=== PATIENT | female | born 1975 | race Caucasian/White ===

== ENCOUNTER → 2020-02-05 11:48 | Outpatient (CLI) | payer OTHER, SELFPAY ==
--- NOTE | 2020-02-05 11:58 | DI.CT.S_ITS ---
PROCEDURE: CT ABDOMEN PELVIS WO CON INDICATIONS: Calculus of ureter TECHNIQUE: Noncontrast 5 mm thick sections acquired from the diaphragms to the symphysis. 5 mm thick coronal and sagittal reformats were then performed. For radiation dose reduction, the following was used: automated exposure control, adjustment of mA and/or kV according to patient size. COMPARISON: (Prior renal ultrasounds are not available from the archive at the time of this dictation.) FINDINGS: Image quality: Excellent. Lung bases: Lung bases are clear. Heart size is normal. Urinary system: There is an obstructing stone seen within the distal left ureter measuring 8 mm, as on series 4 image 42 and on series 2 image 83. There is associated left-sided hydroureter and hydronephrosis. No additional nonobstructing stones are seen on the left side. On the right, several nonobstructing stones are seen, including an irregular 9 mm stone, as on series 2 image 34. No right-sided hydronephrosis is seen. The kidneys demonstrate normal size. Bladder wall thickness is normal; no calcified bladder stones. Other solid organs: Liver is normal in size. Diffuse fatty liver infiltration is noted. Gallbladder wall does not appear thickened. Pancreas is normal in contours. Spleen is normal in size. No adrenal nodules. Peritoneum and bowel: Generalized wall thickening can be seen involving the distal descending colon, beginning at the level of the splenic rupture and continuing through the sigmoid colon. No significant surrounding inflammatory changes are seen. No dilated loops of small bowel are seen. No free fluid or air. Incidental note is made of a normal-appearing appendix. Nodes and vessels: No retroperitoneal or mesenteric adenopathy by size criteria. Aorta and inferior vena cava are normal in caliber. Abdominal wall: A mild periumbilical hernia is seen, containing fat. Pelvis: No free pelvic fluid. No inguinal hernias or adenopathy. Bones: No suspicious bony lesions. No vertebral body compression fractures. Minimal levoconvex lumbar scoliotic curvature is seen. IMPRESSION: 8mm obstructing stone seen within the distal left ureter, with associated left-sided hydroureter and hydronephrosis. Nonobstructing right-sided kidney stones are seen. Generalized wall thickening is seen involving the distal colon. Differential diagnosis includes artifact from nondistention. However, please correlate with potential infectious and inflammatory causes a mild colitis. Incidental note is made of: Fatty liver infiltration Mild fat containing periumbilical hernia Normal appendix Dictated by: Demarcus Gonzalez M.D. on 02/05/2020 at 11:21 Approved by: Demarcus Gonzalez M.D. on 02/05/2020 at 11:26
== END ==
PROVIDERS: PCP Family Medicine; Referring Provider Physician Assistant; Visit Provider Physician Assistant
DX: N13.2 Hydronephrosis with renal and ureteral calculous obstruction (principal); K76.0 Fatty (change of) liver, not elsewhere classified; K42.9 Umbilical hernia without obstruction or gangrene
CPT/HCPCS: 74176

== ENCOUNTER 2023-10-16 21:19 | Emergency (ER) | payer OTHER, SELFPAY ==
[2023-10-16 21:21] VITALS: BP 140/72; PULSE 94; RESP 20; TEMP 36.4; O2SAT 98; BMI 38.0
--- NOTE | 2023-10-16 21:59 | DI.US.S_ITS ---
PROCEDURE: US ABDOMEN LIMITED INDICATIONS: RIGHT UPPER QUADRANT PAIN TECHNIQUE: Real-time scanning was performed of the abdominal and retroperitoneal organs, with image documentation. COMPARISON: None. FINDINGS: Liver: Liver is borderline large measuring up to 17.8 cm. There is increased echogenicity. Limited views of the left lower lobe secondary to overlying bowel gas. Gallbladder: Cholelithiasis. No wall thickening. No pericholecystic edema. Sonographic Quiros sign not assessed. Biliary ducts: Intrahepatic bile ducts are non-dilated. Extrahepatic bile duct caliber measures 5.9 mm. Normal is 6-7 mm or less in diameter, or 10 mm or less post-cholecystectomy. Pancreas: Visualized portions of the pancreas are sonographically normal. Right Kidney: Normal in size and echotexture, without hydronephrosis. No solid masses. IVC: Intrahepatic inferior vena cava is patent where visualized. Miscellaneous: No free abdominal fluid. IMPRESSION: Cholelithiasis without sonographic evidence of acute cholecystitis. Increased hepatic echogenicity noted possibly related to hepatic steatosis but other sources of hepatocellular disease cannot be excluded. Recommend clinical correlation Dictated by: Janae Gonzalez M.D. on 10/17/2023 at 0:03 Approved by: Janae Gonzalez M.D. on 10/17/2023 at 0:05
[2023-10-16 22:18] LABS: Bacteria Urine Occasional (0-1); Squamous Epithelial Cell Urine 0-1 /HPF (0-5/HPF)
[2023-10-16 22:19] LABS: RBC Urine 0-1/HPF (0-5/HPF); WBC Urine 0-1/HPF (0-5/HPF)
[2023-10-16 22:20] LABS: Culture Indicated Urine Cult Not Indicated
[2023-10-16 22:42] LABS: Add Manual Diff / Slide Review NO; Basophils Absolute Auto 100 /uL (0-100); Basophils Percent Auto 0.5 % (0-2); Eosinophils Absolute Auto 100 /uL (0-450); Eosinophils Percent Auto 0.6 % (2-4); Hematocrit 41.3 % (36-46); Hemoglobin 13.8 g/dL (12.0-16.0); Lymphocytes Absolute Auto 2000 /uL (1100-4500); Lymphocytes Percent Auto 12.8 % (25-40); Mean Corpuscular HGB Conc 33.4 % (30-36); Mean Corpuscular Hemoglobin 29.1 PG (26-34); Mean Corpuscular Volume 87.3 fL (80-100); Monocytes Absolute Auto 1400 /uL (0-900); Monocytes Percent Auto 9.1 % (3-14); Neutrophils Absolute Auto 11800 /uL (1500-7000); Platelet Count 369 X10^3/uL (150-400); Red Blood Cell Count 4.73 X10^6/uL (4.0-5.2); Red Cell Distribution Width 12.8 % (11.6-14.8); White Blood Cell Count 15.4 X10^3/uL (4.5-11.0)
[2023-10-16 22:49] LABS: Alanine Aminotransferase 54 IU/L (<35); Albumin 4.2 g/dL (3.5-5.0); Albumin Globulin Ratio 1.2 (1.0-2.8); Alkaline Phosphatase 82 U/L (38-126); Aspartate Aminotransferase 84 IU/L (14-36); Blood Urea Nitrogen 17 mg/dL (7-17); Carbon Dioxide 23 mmol/L (22-32); Chloride 103 mmol/L (98-107); Estimated Glomerular Filt Rate > 60 mL/min (>60); Globulin 3.4 g/dL (1.7-4.1); Glucose 103 mg/dL (70-100); HEMOLYSIS < 15 (0-50); Lipase 128 U/L (23-300); Potassium 3.9 mmol/L (3.4-5.1); Sodium 137 mmol/L (137-145); Total Protein 7.6 g/dL (6.3-8.2)
--- NOTE | 2023-10-16 23:58 | ED.GENADULT ---
HPI - General Adult General Chief complaint: Abdominal Pain Stated complaint: gallbladder attack Time Seen by Provider: 10/16/23 21:56 Source: patient Mode of arrival: Ambulatory History of Present Illness HPI narrative: Patient is a 48-year-old female. She states approximately 0500 hours this morning she was woken from sleep from right upper quadrant abdominal pain. She is also having back discomfort. Describes it in the middle of her back. No chest pain. No shortness of breath No urinary symptoms. No change in bowel habits. No nausea or vomiting. She states that this afternoon she tried to eat some organic yogurt and the pain returned. She currently states she has not having any upper abdominal discomfort. This now in the center of her back. No fevers. Does have history of kidney stones. Related Data Previous Rx's Medication Instructions Recorded albuterol sulfate 90 mcg/actuation 0.09 mg IH Q4HP PRN #1 inh 08/14/16 aerosol inhaler (Proventil HFA) cefuroxime axetil 500 mg tablet 500 mg PO BID #20 tabs 11/27/16 hydrocodone 5 mg-acetaminophen 325 1 tab PO Q6H PRN pain #10 tabs 10/17/23 mg tablet ondansetron 4 mg disintegrating 4 mg PO Q6H PRN nausea and 10/17/23 tablet vomiting #10 tabs Allergies Allergy/AdvReac Type Severity Reaction Status Date / Time amoxicillin [AMOXICILLIN] Allergy Unknown RASH Unverified 01/30/18 13:02 Review of Systems Constitutional Constitutional: Reports system reviewed and no additional complaints, except as documented Gastrointestinal Gastrointestinal: Reports system reviewed and no additional complaints, except as documented Genitourinary Genitourinary: Reports system reviewed and no additional complaints, except as documented Musculoskeletal Musculoskeletal: Reports system reviewed and no additional complaints, except as documented Integumentary/Breasts Skin/Breast: Reports system reviewed and no additional complaints, except as documented Hematologic/Lymphatic On Anticoagulants: No Patient History Surgical History (Updated 02/19/18 @ 06:25 by Conversion Provider) Status post delivery Status post delivery History of third molar tooth extraction Status post myringotomy with insertion of tube Family History (Updated 11/15/16 @ 00:00 by Conversion Provider) Brother Age: 51 Diabetes mellitus Brother Age: 49 Diabetes mellitus Kidney problem Father Age: 71 Essential hypertension Mother Age: 71 Diabetes mellitus Essential hypertension High cholesterol Grandfather Age: 88 Heart disease Essential hypertension Grandmother Age: 86 Cancer Social History Smoking Status: Never smoker Smoking Status: Never smoker Exam Initial Vital Signs Initial Vital Signs: Vital Signs Temperature 97.6 F 10/16/23 21:21 Pulse Rate 94 H 10/16/23 21:21 Respiratory Rate 20 10/16/23 21:21 Blood Pressure 140/72 10/16/23 21:21 Pulse Oximetry 98 10/16/23 21:21 Oxygen Delivery Method Room Air 10/16/23 21:21 Const General: cooperative, comfortable and No ill appearing HENHI Head: normal to inspection and normocephalic GI Inspection: normal to inspection and non-distended Palpation: soft, No firm, No guarding and No tender Skin General: no rashes or lesions noted Neuro General: patient alert, patient awake and moves all extremities Course Orders Ordered: ED Orders 10/16/23 21:30 Urine Microscopic Stat 10/16/23 21:55 Complete Blood Count AUTO DIFF Stat Comprehensive Metabolic Panel Stat Lipase Stat 10/16/23 21:59 US abdomen limited Stat Discontinued Medications Hydrocodone Bitart/Acetaminophen (Hydrocodone/Acet 5/325 Prepack) 1 bottle MISC DIRECTED ONE Stop: 10/17/23 01:11 Last Admin: 10/17/23 01:18 Dose: 1 bottle Documented By: JAMES Ketorolac Tromethamine (Ketorolac 30 Mg/Ml Vial) 30 mg IV NOW ONE Stop: 10/16/23 23:59 Last Admin: 10/17/23 00:07 Dose: 30 mg Documented By: WILMAN Ondansetron HCl (Ondansetron 4 Mg Odt) 4 mg PO NOW PRN PRN Reason: Nausea And Vomiting Ondansetron HCl (Ondansetron 4 Mg/2 Ml Inj) 4 mg IV NOW PRN PRN Reason: Nausea And Vomiting Ondansetron HCl (Ondansetron 4 Mg Odt Prepack) 1 bottle MISC DIRECTED ONE Stop: 10/17/23 01:11 Last Admin: 10/17/23 01:18 Dose: 1 bottle Documented By: JAMES Vital Signs Vital signs: Vital Signs - 8 hr 10/16/23 21:21 10/17/23 01:21 Temperature 97.6 F Pulse Rate 94 H 76 Respiratory Rate 20 18 Blood Pressure 140/72 137/87 Pulse Oximetry 98 96 Oxygen Delivery Method Room Air Room Air Medical Decision Making Lab Data Lab results reviewed: Yes I reviewed the patient's lab results. 10/16/23 21:55 10/16/23 21:55 Labs: Lab Results 10/16/23 10/16/23 Range/Units 21:30 21:55 WBC 15.4 H (4.5-11.0) X10^3/uL RBC 4.73 (4.0-5.2) X10^6/uL Hgb 13.8 (12.0-16.0) g/dL Hct 41.3 (36-46) % MCV 87.3 (80-100) fL MCH 29.1 (26-34) PG MCHC 33.4 (30-36) % RDW 12.8 (11.6-14.8) % Plt Count 369 (150-400) X10^3/uL Neut % (Auto) 77.0 H (50-75) % Lymph % (Auto) 12.8 L (25-40) % Treasure % (Auto) 9.1 (3-14) % Eos % (Auto) 0.6 L (2-4) % Baso % (Auto) 0.5 (0-2) % Neut # (Auto) 14926 H (5396-2422) /uL Lymph # (Auto) 2000 (0551-0166) /uL Treasure # (Auto) 1400 H (0-900) /uL Eos # (Auto) 100 (0-450) /uL Baso # (Auto) 100 (0-100) /uL Sodium 137 (137-145) mmol/L Potassium 3.9 (3.4-5.1) mmol/L Chloride 103 (98-107) mmol/L Carbon Dioxide 23 (22-32) mmol/L BUN 17 (7-17) mg/dL Creatinine 0.85 (0.52-1.04) mg/dL Estimated GFR > 60 (>60) mL/min BUN/Creatinine Ratio 20.0 (6-22) Glucose 103 H (70-100) mg/dL Calcium 10.0 (8.4-10.2) mg/dL Total Bilirubin 1.0 (0.2-1.3) mg/dL AST 84 H (14-36) IU/L ALT 54 H (<35) IU/L Alkaline Phosphatase 82 (38-126) U/L Total Protein 7.6 (6.3-8.2) g/dL Albumin 4.2 (3.5-5.0) g/dL Globulin 3.4 (1.7-4.1) g/dL Albumin/Globulin Ratio 1.2 (1.0-2.8) Lipase 128 (23-300) U/L Urine RBC 0-1/hpf (0-5/HPF) Urine WBC 0-1/hpf (0-5/HPF) Ur Squamous Epith Cells 0-1 /hpf (0-5/HPF) Urine Bacteria Occasional (0-1) (None) Ur Culture Indicated? Cult not indicated Urine Dip Bedside Urine Glucose Negative Bedside Urine Bilirubin - Negative Bedside Urine Ketone - Negative Urine Specific [place] 1.025 Bedside Urine Occult Blood +/- Bedside Urine pH 6.0 Bedside Urine Protein - Negative Bedside Urine Urobilinogen - Negative Bedside Urine Nitrite - Negative Bedside Urine Leukocytes - Negative Esterase Point of care testing: Urine Dip Bedside Urine Glucose Negative Bedside Urine Bilirubin - Negative Bedside Urine Ketone - Negative Urine Specific [place] 1.025 Bedside Urine Occult Blood +/- Bedside Urine pH 6.0 Bedside Urine Protein - Negative Bedside Urine Urobilinogen - Negative Bedside Urine Nitrite - Negative Bedside Urine Leukocytes - Negative Esterase Imaging Data US - abdomen: Radiologist's Impression: PROCEDURE: US ABDOMEN LIMITED INDICATIONS: RIGHT UPPER QUADRANT PAIN TECHNIQUE: Real-time scanning was performed of the abdominal and retroperitoneal organs, with image documentation. COMPARISON: None. FINDINGS: Liver: Liver is borderline large measuring up to 17.8 cm. There is increased echogenicity. Limited views of the left lower lobe secondary to overlying bowel gas. Gallbladder: Cholelithiasis. No wall thickening. No pericholecystic edema. Sonographic Quiros sign not assessed. Biliary ducts: Intrahepatic bile ducts are non-dilated. Extrahepatic bile duct caliber measures 5.9 mm. Normal is 6-7 mm or less in diameter, or 10 mm or less post-cholecystectomy. Pancreas: Visualized portions of the pancreas are sonographically normal. Right Kidney: Normal in size and echotexture, without hydronephrosis. No solid masses. IVC: Intrahepatic inferior vena cava is patent where visualized. Miscellaneous: No free abdominal fluid. IMPRESSION: Cholelithiasis without sonographic evidence of acute cholecystitis. Increased hepatic echogenicity noted possibly related to hepatic steatosis but other sources of hepatocellular disease cannot be excluded. Recommend clinical correlation MDM Narrative Medical decision making narrative: Patient does have leukocytosis. Slight elevation in her LFTs. She has no Quiros's sign. Right upper quadrant ultrasound shows cholelithiasis but no other indication of acute cholecystitis. Did discuss the case with Dr. Tavarez. On-call for General surgery. Recommendation is to discharge patient home with diet modification, symptom treatment and follow-up as an outpatient to discuss a nonemergent elective cholecystectomy. I discussed this with the patient. Will discharge patient home. She was given strict return precautions. She expressed understanding and agreement. Discharge Plan Departure Patient Disposition: Home Clinical Impression: Abdominal pain, Cholelithiasis Instructions: Gallstones (Alternative Therapy), DI for Gallstones Activity Restrictions/Additional Instructions: I do recommend that you eat a bland diet avoiding foods that are high in fat/oil/grease. This is the best chance to avoid reoccurrence of symptoms. Recommend you contact the general surgeons with the number provided below for follow-up. Contact your primary doctor for a follow-up as well. Return to the emergency department for new symptoms. Prescriptions: New ondansetron 4 mg tablet,disintegrating 4 mg PO Q6H PRN (Reason: nausea and vomiting) Qty: 10 0RF hydrocodone-acetaminophen 5-325 mg tablet 1 tab PO Q6H PRN (Reason: pain) Qty: 10 0RF No Action albuterol sulfate [Proventil HFA] 90 MCG/PUFF HFA aerosol inhaler 0.09 mg IH Q4HP PRNQty: 1 1RF cefuroxime axetil 500 MG tablet 500 mg PO BID Qty: 20 0RF Referrals: Adelia Omalley MD [Primary Care Provider] - Lucien Prasad MD [Physician] - Stand Alone Forms: Patient Portal/API
[2023-10-17] MEDS: KETOROLAC 30 MG/ML VIAL IV (00:07)
[2023-10-17] MEDS: HYDROCODONE/ACET 5/325 PREPACK 1 BOTTLE MISC (01:18)
[2023-10-17] MEDS: ONDANSETRON 4 MG ODT PREPACK 1 BOTTLE MISC (01:18)
[2023-10-17 01:21] VITALS: BP 137/87; PULSE 76; RESP 18; O2SAT 96
== END 2023-10-17 01:24 | disposition home or self-care (01) ==
PROVIDERS: Emergency Provider Emergency Medicine; PCP Family Medicine
DX: K80.20 Calculus of gallbladder without cholecystitis without obstruction (principal); R10.11 Right upper quadrant pain; M54.6 Pain in thoracic spine
CPT/HCPCS: 76705; 80053; 81003; 81015; 83690; 85025; 96374; 99283; 99284; J1885